=== PATIENT | female | born 2005 | race Caucasian/White ===

== ENCOUNTER 2024-11-03 19:21 | Emergency (ER) | payer MEDICAID, SELFPAY ==
[2024-11-03 19:22] VITALS: BMI 26.5
[2024-11-03 19:49] VITALS: BP 119/79; PULSE 103; RESP 18; TEMP 37.2; O2SAT 97
--- NOTE | 2024-11-03 20:36 | PD.EDRME ---
Rapid Medical Screening Exam RME Arrival date/time: 11/03/24 19:21 Chief Complaint: Extremity Problem,Nontraumatic Time Seen by Provider: 11/03/24 19:23 Vital signs: Vital Signs Temperature 98.9 F 11/03/24 19:49 Pulse Rate 103 H 11/03/24 19:49 Respiratory Rate 18 11/03/24 19:49 Blood Pressure 119/79 11/03/24 19:49 Pulse Oximetry (%) 97 11/03/24 19:49 Oxygen Delivery Method Room Air 11/03/24 19:49 Vital signs reviewed by provider: Yes RME Narrative: 19-year-old female presents to the ED with a complaint of right shoulder and neck pain that began yesterday. Today she is experiencing worsening pain in the right trapezius area. Pain is exacerbated by deep breaths and is relieved by nothing. She denies any recent injury or repetitive movement. She denies sleeping with her arm above her head. She denies any recent motor vehicle accidents or neck strains. She denies any recent illness with fever, chills, cough, upper respiratory complaints. She has had nausea and vomiting but states this is related to her taking Zepbound x 1 year. Right shoulder and chest x-ray ordered and pending. Patient was ordered Toradol 30 mg IM. I have greeted and performed a focused initial assessment of this patient. A comprehensive ED assessment and evaluation of the patient, analysis of all test results, and completion of the medical decision making process will be conducted by additional ED providers.
--- NOTE | 2024-11-03 20:41 | XR_ITS ---
Examination: Shoulder,right, 3 views Technique: Shoulder AP internal rotation, AP external rotation, Y view shoulder, 3 views Exam date and time :November 03, 20242052 hours INDICATIONS: Right shoulder pain today FINDINGS: No fracture or dislocation. No foreign body IMPRESSION: No fracture or dislocation
--- NOTE | 2024-11-03 20:41 | XR_ITS ---
Examination: PA and lateral chest 2 views TECHNIQUE: Upright PA and lateral chest 2 views Exam date and time: November 03, [id number] hours Comparison June 10, 2021 INDICATIONS: Chest and right shoulder pain today FINDINGS: Normal heart size. Lungs are clear. The osseous structures are intact IMPRESSION: No active disease
[2024-11-03] MEDS: KETOROLAC INJ 60 MG/2 ML VIAL 30 MG IM (21:07)
--- NOTE | 2024-11-03 22:04 | PD.EDADULT ---
ED General RME/HPI General Chief complaint: Extremity Problem,Nontraumatic Stated complaint: RT SHOULDER PAIN THAT RADIATES TO NECK AND BACK Time Seen by Provider: 11/03/24 19:23 Arrival date/time: 11/03/24 19:21 RME / HPI RME / HPI narrative: 19-year-old female presents to the ED with a complaint of right shoulder and neck pain that began yesterday. Today she is experiencing worsening pain in the right trapezius area. Pain is exacerbated by deep breaths and is relieved by nothing. She denies any recent injury or repetitive movement. She denies sleeping with her arm above her head. She denies any recent motor vehicle accidents or neck strains. She denies any recent illness with fever, chills, cough, upper respiratory complaints. She has had nausea and vomiting but states this is related to her taking Zepbound x 1 year. Right shoulder and chest x-ray ordered and pending. Patient was ordered Toradol 30 mg IM. I have greeted and performed a focused initial assessment of this patient. A comprehensive ED assessment and evaluation of the patient, analysis of all test results, and completion of the medical decision making process will be conducted by additional ED providers. Related Data Previous Rx's ?Medication ?Instructions ?Recorded meloxicam 15 mg tablet 15 mg PO QDAY #10 tabs 11/03/24 Allergies Allergy/AdvReac Type Severity Reaction Status Date / Time No Known Allergies Allergy Verified 11/03/24 19:22 Review of Systems Review of Systems Systems Reviewed: All systems reviewed, normal except as documented Past Medical History Past Medical History CARDIAC: Positive Congestive Heart Failure RESPIRATORY: Positive Chronic Obstructive Pulmonary Disease (COPD) GENITOURINARY: Positive Renal Disease ENDOCRINE: Positive Diabetes Mellitus Type 1 and Diabetes Mellitus Type 2 PSYCHO/SOCIAL: Positive Depression, Anxiety, Behavior Problems and Post Traumatic Stress Disorder Social History SMOKING STATUS: Never smoker SUBSTANCE USE: does not use ED Exam Narrative Physical exam: Alert and oriented 19 year old female, no acute distress. Vital signs stable. Lungs clear. RRR. MAEW. Cervical and thoracic right sided paraspinal tenderness as well as trapezius tenderness. CMS intact to bilateral upper extremities. Course Course Course Narrative: Right shoulder xray reveals no acute fracture or dislocation. XR Chest reveals no active disease, Patient was given Toradol 30mg IM. Quality Measures none Orders Category Date Time Status XR chest 2V Stat Exams 11/03/24 20:41 Completed XR shoulder RT min 2V Stat Exams 11/03/24 20:41 Completed Ketorolac Inj [Toradol Inj] Med 11/03/24 20:41 Discontinued 30 mg IM X1 ONE Vital Signs Vital signs: Vital Signs Temperature 98.9 F 11/03/24 19:49 Pulse Rate 103 H 11/03/24 19:49 Respiratory Rate 18 11/03/24 19:49 Blood Pressure 119/79 11/03/24 19:49 Pulse Oximetry (%) 97 11/03/24 19:49 Oxygen Delivery Method Room Air 11/03/24 19:49 Discharge Plan Plan Patient Disposition: HOME (Self Care) Discharge Disposition comment: Stable and improved Prescriptions/Referrals Prescriptions/Med Rec: New meloxicam 15 mg tablet 15 mg PO QDAY Qty: 10 0RF Referrals: Dhiraj Maher MD [Primary Care Provider] - In 1 week Problem List Clinical Impression: Myofascial pain syndrome, cervical, Right shoulder pain Patient/Caregiver Discharge Instructions Education Materials: ED Myofascial Pain Syndrome, ED Shoulder Pain, Uncertain Cause Additional Instructions: Begin taking the new prescription tomorrow as needed. Follow-up with your primary care physician in 24 to 48 hours. Return to the ED for any new or worsening symptoms. Print Language: Senegalese Stand Alone Forms: [employer] Award Info., Patient Portal Info Letter PA/MARCI Supervising Physician PA/MARCI Supervising Physician: Dr. Salas MDM Narrative [facility] hospital course (for use when minimal MDM required): 19-year-old female presents to the ED with a complaint of right shoulder and neck pain that began yesterday. Today she is experiencing worsening pain in the right trapezius area. Pain is exacerbated by deep breaths and is relieved by nothing. She denies any recent injury or repetitive movement. She denies sleeping with her arm above her head. She denies any recent motor vehicle accidents or neck strains. She denies any recent illness with fever, chills, cough, upper respiratory complaints. She has had nausea and vomiting but states this is related to her taking Zepbound x 1 year. Right shoulder xray reveals no acute fracture or dislocation. XR Chest reveals no active disease, Patient was given Toradol 30mg IM. Clinical Information Provided by: patient Medical Records reviewed None Meds/Rx considered, not ordered None Labs/Rad/Tests considered, not ordered Describe: Chest x-ray and right shoulder x-ray ordered. No acute process in the chest. No fracture or dislocation of the right shoulder. Chronic Illness/Social Conditions which may negatively complicate care or outcome(s)-explain: None or not applicable Labs Labs: none Imaging Imaging interpretation: none or see narrative above Medication Administration(s) Medication Administration History Discontinued Medications Ketorolac Tromethamine (Ketorolac Inj 60 Mg/2 Ml Vial) 30 mg IM X1 ONE Stop: 11/03/24 20:42 Last Admin: 11/03/24 21:07 Dose: 30 mg Documented By: JAQUI Toradol 30 mg IM.
== END 2024-11-03 22:28 | disposition home or self-care (01) ==
PROVIDERS: Emergency Provider Emergency Medicine; PCP Family Medicine
DX: M25.511 Pain in right shoulder (principal); M79.18 Myalgia, other site; R07.9 Chest pain, unspecified
CPT/HCPCS: 71046; 73030; 96372; 99283; J1885

== ENCOUNTER 2025-02-15 19:30 | Emergency (ER) | payer MEDICAID, SELFPAY ==
[2025-02-15 19:31] VITALS: BMI 26.5
[2025-02-15 19:41] VITALS: BP 102/65; PULSE 116; RESP 20; TEMP 37.7; O2SAT 98
--- NOTE | 2025-02-15 19:47 | PD.EDNV ---
Nausea/Vomit./Diarrhea-RME/HPI General Chief complaint: Nausea/Vomiting/Diarrhea Stated complaint: NVD TWO DAYS Time Seen by Provider: 02/15/25 19:33 Source: patient, RN notes reviewed and old records reviewed Arrival date/time: 02/15/25 19:30 Mode of arrival: ambulatory Limitations: no limitations RME / HPI RME / HPI Narrative: 19yof presents to ED for 2-day history of nausea, vomiting and diarrhea. Sister currently has similar symptoms. Patient reports intermittent low-grade fevers and generalized abdominal cramping. No URI symptoms, blood in stool/vomit or dysuria reported. Patient took Tylenol this morning with some relief. Related Data Previous Rx's ?Medication ?Instructions ?Recorded meloxicam 15 mg tablet 15 mg PO QDAY #10 tabs 11/03/24 dicyclomine 20 mg tablet 20 mg PO Q6HR PRN abdominal pain 02/15/25 #20 tabs ibuprofen 600 mg tablet 600 mg PO Q6H PRN fever or pain 02/15/25 #20 tabs ondansetron 4 mg disintegrating 4 mg PO Q6H PRN nausea and 02/15/25 tablet vomiting #10 tabs Allergies Allergy/AdvReac Type Severity Reaction Status Date / Time No Known Allergies Allergy Verified 02/15/25 19:33 Review of Systems Review of Systems Systems Reviewed: All systems reviewed, normal except as documented Constitutional Constitutional: Reports chills, Reports fever(s) and Reports headache(s) ENT Ears, Nose, Mouth, and Throat: Denies dizziness, Reports headache(s), Denies nasal congestion and Denies sore throat Respiratory Respiratory: Denies cough Gastrointestinal Gastrointestinal: Reports abdominal pain, Reports loose stools, Reports nausea and Reports vomiting Genitourinary Genitourinary: Denies dysuria Neurologic Neurologic: Denies dizziness and Reports headache(s) Past Medical History Past Medical History PSYCHO/SOCIAL: Positive Depression, Anxiety and Behavior Problems Surgical History OTHER SURGICAL HX: denies pshx Social History SMOKING STATUS: Never smoker SUBSTANCE USE: does not use ALCOHOL: Never ED Exam General Limitations: Present no limitations General appearance: Present alert and in no apparent distress Head Head exam: Present atraumatic and normocephalic Eye Eye exam: Present normal appearance, PERRL and EOMI ENT ENT exam: Present mucous membranes dry Neck Neck exam: Present normal inspection and full ROM Chest Chest inspection: Present normal inspection and symmetric chest wall rise Respiratory Respiratory exam: Present normal lung sounds bilaterally; Absent respiratory distress Cardiovascular Cardiovascular exam: Present normal rhythm and tachycardia (Mild) Abdominal Exam Abdominal exam: Present soft and tenderness (Mild, epigastric); Absent distention, guarding or rebound Extremities Exam Extremities exam: Present normal inspection and full ROM Back Exam Back exam: Absent CVA tenderness (R) or CVA tenderness (L) Neurological Exam Neurological exam: Present alert and oriented X3 Psychiatric Psychiatric exam: Present normal affect and normal mood Skin Skin exam: Present warm, dry, intact and normal color Course Quality Measures none Orders Category Date Time Status Insert IV NOW Care 02/15/25 20:00 Completed CBC Stat Lab 02/15/25 20:00 Completed CMP [Comprehensive Metabolic Panel] Stat Lab 02/15/25 20:00 Completed HCG Qualitative,Urine Stat Lab 02/15/25 20:54 Completed Lipase Stat Lab 02/15/25 20:00 Completed UA [Urinalysis] Stat Lab 02/15/25 20:54 Completed Ketorolac Inj [Toradol Inj] Med 02/15/25 19:46 Discontinued 30 mg IVP X1 ONE Metoclopramide Inj [Reglan Inj] Med 02/15/25 21:44 Discontinued 10 mg IVP X1 ONE Ondansetron Inj [Zofran Inj] Med 02/15/25 19:46 Discontinued 4 mg IVP X1 ONE Sodium Chloride 0.9% 1000 ml [Ns] 1,000 ml Med 02/15/25 19:47 Discontinued IV 999 mls/hr Sodium Chloride 0.9% 1000 ml [Ns] 1,000 ml Med 02/15/25 20:46 Discontinued IV 999 mls/hr Vital Signs Vital signs: Vital Signs Temperature 99.9 F 02/15/25 19:41 Pulse Rate 116 H 02/15/25 19:41 Respiratory Rate 20 02/15/25 19:41 Blood Pressure 102/65 02/15/25 19:41 Pulse Oximetry (%) 98 02/15/25 19:41 Oxygen Delivery Method Room Air 02/15/25 19:41 Nausea/Vomiting/Diarrhea MDM Narrative MDM Narrative:: 19yof presents to ED for 2-day history of nausea, vomiting and diarrhea. Sister currently has similar symptoms. Patient reports intermittent low-grade fevers and generalized abdominal cramping. No URI symptoms, blood in stool/vomit or dysuria reported. Patient took Tylenol this morning with some relief. Patient reassessed. She is feeling better, symptoms improved, tolerating po. Labs and exam reassuring. Suspect viral etiology of symptoms. Encourage rest, fluids, symptomatic treatment, fever management prn. Stable for discharge, RT ED precautions given. Patient data External records reviewed:: [facility] previous records (06/10/2021 ED visit for viral illness) Clinical information provided by:: patient Social determinants that could affect healthcare access:: other (specify) (poor access to healthcare, unemployed) Patient has the following chronic illnesses:: Anxiety, depression How is presenting disease/condition affected by chronic disease/condition?: uneffected by Evaluation data The following diagnostics were reviewed and interpreted by me:: lab results Lab and/or radiology exams considered but not ordered:: CT abdomen/pelvis: Nonsurgical abdomen on exam Interpretation Summary: No leukocytosis No anemia LFTs and lipase wnl Negative hcg UA -leuks/nitrites Medications / Prescriptions Medications / Prescriptions considered but not ordered:: No antibiotics recommended at this time Medication administrations:: Medication Administration History Discontinued Medications Sodium Chloride (Ns) 1,000 mls @ 999 mls/hr IV .Q1H1M ONE Stop: 02/15/25 20:47 Last Infusion: 02/15/25 20:47 Dose: Infused Documented By: Admin: 02/15/25 20:05 Dose: 999 mls/hr Documented By: BD Sodium Chloride (Ns) 1,000 mls @ 999 mls/hr IV .Q1H1M ONE Stop: 02/15/25 21:46 Last Infusion: 02/15/25 21:52 Dose: Infused Documented By: Admin: 02/15/25 20:50 Dose: 999 mls/hr Documented By: BD Ketorolac Tromethamine (Ketorolac Inj 30 Mg/Ml Vial) 30 mg IVP X1 ONE Stop: 02/15/25 19:47 Last Admin: 02/15/25 20:04 Dose: 30 mg Documented By: BD Metoclopramide HCl (Metoclopramide Inj 5 Mg/Ml Vial 2 Ml) 10 mg IVP X1 ONE; Protocol Stop: 02/15/25 21:45 Last Admin: 02/15/25 22:05 Dose: 10 mg Documented By: BD Ondansetron HCl (Ondansetron Inj 2 Mg/Ml Inj 2 Ml) 4 mg IVP X1 ONE; Protocol Stop: 02/15/25 19:47 Last Admin: 02/15/25 20:05 Dose: 4 mg Documented By: REGAN Above medications administered in ED Consultations Consultation(s) initiated? (list below): No Diagnosis Nausea Differential Diagnosis: food poisoning, gastroenteritis, dehydration and other (Electrolyte imbalance, CHS, hyperemesis gravidarum) Most likely diagnosis given after review of the tests above:: Gastroenteritis Admission Indicated Admission indicated?: not indicated Admission Request Was there a request for admission?: No Disposition Plan Disposition Plan: Discharge Discharge Attestation Discharge Attestation: The patient and all family members were given an opportunity to ask questions and understood the discharge instructions. Discharge instructions specifically effects, indications for sooner follow up or return to the emergency department, and the expected course of current diagnosis. Patient condition: Stable Discharge Plan Plan Patient Disposition: HOME (Self Care) Patient condition on transfer: Stable Prescriptions/Referrals Prescriptions/Med Rec: New ondansetron 4 mg tablet,disintegrating 4 mg PO Q6H PRN (Reason: nausea and vomiting) Qty: 10 0RF dicyclomine 20 mg tablet 20 mg PO Q6HR PRN (Reason: abdominal pain) Qty: 20 0RF ibuprofen 600 mg tablet 600 mg PO Q6H PRN (Reason: fever or pain) Qty: 20 0RF No Action meloxicam 15 mg tablet 15 mg PO QDAY Qty: 10 0RF Referrals: No Primary/Family,Physician [Primary Care Provider] - In 1 week Problem List Clinical Impression: Viral gastroenteritis, Abdominal pain Patient/Caregiver Discharge Instructions Education Materials: ED Gastroenteritis, Viral (Adult) Print Language: Mauritian Stand Alone Forms: [employer] Award Info., Patient Portal Info Letter PA/MARCI Supervising Physician PA/MARCI Supervising Physician: Esther
[2025-02-15] MEDS: KETOROLAC INJ 30 MG/ML VIAL IVP (20:04)
[2025-02-15] MEDS: ONDANSETRON INJ 2 MG/ML INJ 2 ML 4 MG IVP (20:05)
[2025-02-15] MEDS: SODIUM CHLORIDE 0.9% 1000 ML 1,000 ML 999 ML IV ×2 (20:05→20:50)
[2025-02-15 20:14] LABS: Basophils # (Auto) 0.0 Thou/mm3 (0.0-0.2); Basophils % (Auto) 0 % (0-2.5); Eosinophils # (Auto) 0.0 Thou/mm3 (0.0-0.5); Eosinophils % (Auto) 0 % (0-10); Hematocrit 38.7 % (36.0-46.0); Hemoglobin 12.4 g/dL (12.0-16.0); Immature Granulocytes Auto 0.01 Thou/mm3 (0.00-0.00); Lymphocytes # (Auto) 1.1 Thou/mm3 (1.0-4.8); Lymphocytes % (Auto) 14 % (10-50); Mean Corpuscular HGB Conc 32.0 g/dl (31.0-37.0); Mean Corpuscular Hemoglobin 25.3 pg (25.0-35.0); Mean Corpuscular Volume 79 fL (80-100); Monocytes # (Auto) 0.4 Thou/mm3 (0.0-0.8); Monocytes % (Auto) 6 % (0-12); Neutrophils # (Auto) 6.2 Thou/mm3 (1.8-7.7); Neutrophils % (Auto) 80 % (37-80); Nucleated Red Blood Cell # 0.00 Thou/mm3 (0.00-0.00); Nucleated Red Blood Cell % 0 /100 WBC (0); Platelet Count 302 Thou/mm3 (140-440); RDW Standard Deviation 39.8 fL (36.4-46.3); Red Blood Count 4.90 Miln/mm3 (4.00-5.20); White Blood Count 7.7 Thou/mm3 (4.5-11.0)
[2025-02-15 20:37] LABS: Alanine Aminotransferase 17 U/L (10-49); Albumin, Serum 4.9 gm/dL (3.5-5.0); Albumin/Globulin Ratio 2.0 (1.2-2.2); Alkaline Phosphatase 79 U/L (46-116); Anion Gap 9 (7-16); Aspartate Amino Transferase 19 U/L (0-34); BUN/Creatinine Ratio 13 Ratio (12-20); Bilirubin,Total 0.9 mg/dL (0.3-1.2); Blood Urea Nitrogen 10 mg/dL (9-23); Calcium 9.9 mg/dL (8.3-10.6); Calcium (Corrected) 9.9 mg/dL (8.5-10.1); Carbon Dioxide 23.4 mMol/L (20.0-31.0); Chloride 105 mMol/L (98-107); Creatinine (Component) 0.8 mg/dL (0.6-1.3); Estimated Creatinine Clearance 99.8 mL/min (>60); Globulin 2.4 gm/dL (2.3-3.5); Glucose 96 mg/dL (74-106); Lipase 25 U/L (12-53); Osmolality,Calculated 272 (275-295); Potassium 3.5 mMol/L (3.4-5.1); Sodium 137 mMol/L (136-145); Total Protein 7.3 gm/dL (5.7-8.2); eGFR > 60 See Note
[2025-02-15 21:08] LABS: Collection Type, Urine Clean Catch
[2025-02-15 21:23] LABS: Amorphous Crystals,Urine Present (Absent); Bacteria,Urine Rare; Bilirubin,Urine Negative (Negative); Blood,Urine Negative (Negative); Clarity,Urine Clear (Clear/Hazy); Color,Urine Yellow (Lt Yel-Yel); Glucose, Urine Negative (Negative); Hyaline Casts,Urine < 1 /hpf (0-1); Ketones,Urine Negative (Negative); Leukocyte Esterase,Urine Negative (Negative); Nitrite,Urine Negative (Negative); PH,Urine 6.0 (5.0-7.0); Protein,Urine 1+ (Neg - Trace); RBC,Urine 4 /hpf (0-3); Specific Gravity,Urine 1.039 (1.001-1.035); Squamous Epithelial Cell,Urine 4 /hpf (0-5); Urobilinogen,Urine Negative mg/dL (0.0-1.0); WBC,Urine 6 /hpf (0-5)
[2025-02-15 21:24] LABS: HCG Qualitative,Urine Negative
[2025-02-15] MEDS: METOCLOPRAMIDE INJ 5 MG/ML VIAL 2 ML 10 MG IVP (22:05)
[2025-02-15 22:31] VITALS: PULSE 94; RESP 20; O2SAT 100
== END 2025-02-15 22:41 | disposition home or self-care (01) ==
PROVIDERS: Physician Assistant; Emergency Provider Emergency Medicine
DX: A08.4 Viral intestinal infection, unspecified (principal)
CPT/HCPCS: 36415; 80053; 81001; 81025; 83690; 85025; 96361; 96374; 96375; 99283; J1885; J2405; J2765; J7030